=== PATIENT | female | born 1990 | race Caucasian/White ===

== ENCOUNTER 2019-07-05 10:05 | Inpatient (IN) | payer BC ==
[2019-07-05] MEDS ORDERED: Citric Acid/Sodium Citrate Solution 30 ML Cup PO ONE (10:17)
[2019-07-05] MEDS ORDERED: Sodium Chloride 0.9% 10 ML SDV IV PRN (10:17)
[2019-07-05] MEDS ORDERED: Sodium Chloride 0.9% 10 ML Syringe FLUSH PRN (10:17)
[2019-07-05] MEDS ORDERED: ceFAZolin 2 GM in Premix Bag 1 BAG IV ONE (10:17)
[2019-07-05] MEDS ORDERED: Sodium Chloride 0.9% 2.5 ML Syringe FLUSH PRN (10:17)
[2019-07-05] MEDS ORDERED: Oxytocin/0.9 % Sodium Chloride 30 UNIT/500 ML BAG IV SCH (10:30)
[2019-07-05] MEDS: Lactated Ringers 1,000 ML IV SCH ×3 (10:40→11:50)
[2019-07-05] MEDS ORDERED: Morphine PF 10 MG/10 ML SDV ONE (11:32)
--- NOTE | 2019-07-05 11:54 | PCM.PREANE ---
Preanesthetic Assessment - Anesthesia/Transfusion/Family Hx Anesthesia History: Prior Anesthesia Without Reaction Family History of Anesthesia Reaction: No Transfusion History: No Prior Transfusion(s) Intubation History: Unknown - Review of Systems General: No Symptoms Pulmonary: No Symptoms Cardiovascular: No Symptoms Gastrointestinal: No Symptoms Neurological: No Symptoms Other: Reports: None - Physical Assessment Height: 4 ft 11 in Weight: 61.689 kg ASA Class: 2 Mental Status: Alert & Oriented x3 Airway Class: Mallampati = 2 Dentition: Reports: Normal Dentition Thyro-Mental Finger Breadths: 3 Mouth Opening Finger Breadths: 3 ROM/Head Extension: Full Lungs: Clear to Auscultation, Normal Respiratory Effort Cardiovascular: Regular Rate, Regular Rhythm - Lab Values: Laboratory Last Values WBC 6.26 K/uL (4.0-11.0) 07/05/19 10:38 RBC 3.95 M/uL (4.30-5.90) L 07/05/19 10:38 Hgb 11.4 g/dL (12.0-16.0) L 07/05/19 10:38 Hct 34.8 % (36.0-46.0) L 07/05/19 10:38 MCV 88.1 fL (80.0-98.0) 07/05/19 10:38 MCH 28.9 pg (27.0-32.0) 07/05/19 10:38 MCHC 32.8 g/dL (31.0-37.0) 07/05/19 10:38 RDW Std Deviation 43.8 fl (28.0-62.0) 07/05/19 10:38 RDW Coeff of Nam 14 % (11.0-15.0) 07/05/19 10:38 Plt Count 137 K/uL (150-400) L 07/05/19 10:38 MPV 11.80 fL (7.40-12.00) 07/05/19 10:38 Nucleated RBC % 0.0 /100WBC 07/05/19 10:38 Nucleated RBCs # 0 K/uL 07/05/19 10:38 Blood Type A NEGATIVE 07/05/19 10:38 Antibody Screen NEGATIVE 07/05/19 10:38 - Allergies Allergies/Adverse Reactions: Allergies Allergy/AdvReac Type Severity Reaction Status Date / Time No Known Allergies Allergy Verified 06/29/19 10:14 - Blood Blood Available: No - Anesthesia Plan Pre-Op Medication Ordered: None - Acknowledgements Anesthesia Type Planned: Spinal (general anesthesia back-up plan) Pt an Appropriate Candidate for the Planned Anesthesia: Yes Alternatives and Risks of Anesthesia Discussed w Pt/Guardian: Yes Pt/Guardian Understands and Agrees with Anesthesia Plan: Yes PreAnesthesia Questionnaire HEENT History: Reports: None Cardiovascular History: Reports: None Respiratory History: Reports: None Gastrointestinal History: Reports: None Genitourinary History: Reports: None LOGISTICIAN History: Reports: Musculoskeletal History: Reports: None Neurological History: Reports: None Psychiatric History: Reports: None Endocrine/Metabolic History: Reports: None Hematologic History: Reports: Anemia Immunologic History: Reports: None Oncologic (Cancer) History: Reports: None Dermatologic History: Reports: None - Past Surgical History Head Surgeries/Procedures: Reports: None HEENT Surgical History: Reports: None Cardiovascular Surgical History: Reports: None Respiratory Surgical History: Reports: None GI Surgical History: Reports: None Female Surgical History: Reports: Section Endocrine Surgical History: Reports: None Neurological Surgical History: Reports: None Musculoskeletal Surgical History: Reports: None Oncologic Surgical History: Reports: None Dermatological Surgical History: Reports: None - SUBSTANCE USE Smoking Status *Q: Never Smoker Second Hand Smoke Exposure: No Recreational Drug Use History: No - HOME MEDS Home Medications: Home Meds Pnv No.95/Ferrous Fum/Folic AC [ Vitamin Tablet] 1 tab PO DAILY [History] - CURRENT (IN HOUSE) MEDS Current Meds: Current Medications Lactated Ringer's (Ringers, Lactated) 1,000 mls @ 500 mls/hr IV BOLUS [facility] Last Admin: 07/05/19 11:50 Dose: 500 mls/hr Oxytocin/Sodium Chloride (Oxytocin 30 Unit/500 Ml-Ns) 30 unit in 500 mls @ 250 mls/hr IV TITRATE [facility] Sodium Chloride (Saline Flush) 10 ml FLUSH ASDIRECTED PRN PRN Reason: Keep Vein Open Sodium Chloride (Saline Flush) 2.5 ml FLUSH ASDIRECTED PRN PRN Reason: Keep Vein Open Sodium Chloride (Normal Saline) 10 ml IV ASDIRECTED PRN PRN Reason: IV Use Discontinued Medications Citric Acid/Sodium Citrate (Bicitra Solution) 30 ml PO ONETIME ONE Stop: 07/05/19 10:18 Last Admin: 07/05/19 11:46 Dose: 30 ml Cefazolin Sodium/Dextrose 2 gm (/ Premix) 50 mls @ 100 mls/hr IV ONETIME ONE Stop: 07/05/19 10:46 Morphine Sulfate (Duramorph Pf) Confirm Administered Dose 10 mg .ROUTE .STK-MED ONE Stop: 07/05/19 11:33
[2019-07-05] MEDS ORDERED: ePHEDrine 50 MG/ML SDV ONE (13:01)
[2019-07-05] MEDS ORDERED: Phenylephrine/Normal Saline 100 MCG/ML 10 ML Syringe ONE (13:01)
[2019-07-05] MEDS ORDERED: Oxytocin 10 Units/1 ML SDV ONE (13:02)
[2019-07-05] MEDS ORDERED: Lanolin 100% Cream 7 GM Tube TOP PRN (13:06)
[2019-07-05] MEDS ORDERED: Ondansetron 4 MG/2 ML SDV IVPUSH PRN ×2 (13:06→13:18)
[2019-07-05] MEDS ORDERED: Bisacodyl 10 MG Supp RECTAL PRN (13:06)
[2019-07-05] MEDS ORDERED: diphenhydrAMINE 50 MG/ML SDV IVPUSH PRN ×2 (13:06→13:18)
--- NOTE | 2019-07-05 13:10 | PCM.OPNOTE ---
- General Post-Op/Procedure Note Date of Surgery/Procedure: 07/05/19 Operative Procedure(s): Repeat section Findings: Live male , cephalic presentation, Apgars 8/9, weight 3580g. Normal- appearing uterus and fallopian tubes with thin lower uterine segment. Pre Op Diagnosis: 29yo @ 39w2d. History of section x1 Post-Op Diagnosis: 29yo s/p repeat delivery Anesthesia Technique: Spinal Primary Surgeon: Miya Mir Pathology: Cord blood, cord gases, placenta Fluid Replacement, Intraop: 800 Output, Urine Amount: 150 EBL in mLs: 500 Complications: None Condition: Good
[2019-07-05] MEDS ORDERED: Lactated Ringers 1,000 ML IV SCH (13:15)
[2019-07-05] MEDS ORDERED: Acetaminophen/oxyCODONE 325-5 MG Tab PO PRN (13:18)
[2019-07-05] MEDS ORDERED: fentaNYL 100 MCG/2 ML SDV IVPUSH PRN (13:18)
[2019-07-05] MEDS ORDERED: Naloxone 0.4 MG/ML Syringe IVPUSH PRN (13:18)
[2019-07-05] MEDS ORDERED: Nalbuphine 10 MG/1 ML Vial IVPUSH PRN (13:18)
[2019-07-05] MEDS: Ketorolac 30 MG/ML SDV IVPUSH SCH ×2 (13:24→19:19)
--- NOTE | 2019-07-05 13:59 | PCM.POSTAN ---
POST ANESTHESIA ASSESSMENT - MENTAL STATUS Mental Status: Alert, Oriented - VITAL SIGNS Vital Signs: Last Vital Signs Temp 36 C 07/05/19 13:06 Pulse 91 07/05/19 13:41 Resp 20 07/05/19 13:41 BP 97/51 L 07/05/19 13:41 Pulse Ox 97 07/05/19 13:41 - RESPIRATORY Respiratory Status: Respiratory Rate WNL, Airway Patent, O2 Saturation Stable - CARDIOVASCULAR CV Status: Pulse Rate WNL, Blood Pressure Stable - GASTROINTESTINAL GI Status: No Symptoms - PAIN Pain Score: 0 - POST OP HYDRATION Hydration Status: Adequate & Stable - OBSERVATIONS Free Text/Narrative:: No anesthesia problems
--- NOTE | 2019-07-05 15:53 | OR ---
SURGEON: Miya Mir MD DATE OF PROCEDURE: 07/05/2019 PREOPERATIVE DIAGNOSES: 1. A 29-year-old, G2, P 1-0-0-1, at 39-2/7 weeks' gestation. 2. History of delivery x1. POSTOPERATIVE DIAGNOSES: 1. A 29-year-old, G2, P 1-0-0-1, at 39-2/7 weeks' gestation. 2. History of delivery x1. PROCEDURE: Repeat delivery. PRIMARY SURGEON: Miya Mir MD. ANESTHESIA: Spinal. IV FLUIDS: 800 mL. URINE OUTPUT: 150 mL. ESTIMATED BLOOD LOSS: 500 mL. FINDINGS: Live male in cephalic presentation. scores 8 and 9 at one and five minutes respectively. Weight 3580 g. Normal-appearing fallopian tubes and uterus within the lower uterine segment. INDICATIONS: This is a 29-year-old, G2, P 1-0-0-1 who presented at 39-2/7 weeks' gestation for planned repeat delivery. She had previously had a delivery for suspected cephalopelvic disproportion. The trial of labor calculator was used, which estimated 55% chance of success with a vaginal delivery. Therefore, the decision was made to proceed with repeat section. DESCRIPTION OF PROCEDURE: The patient was taken to the operating room where spinal anesthesia was obtained. She was placed in the dorsal supine position with a leftward tilt. She was prepared and draped in normal sterile fashion. Time-out was held. A Pfannenstiel skin incision was made using the previous incision as a guide with the scalpel and carried through to the underlying layer of fascia with the Bovie. The fascia was incised in the midline and the incision extended laterally with curved Awan scissors. The superior aspect of the fascial incision was grasped with Dusty clamps, elevated, and underlying rectus muscles dissected off bluntly with Bovie. In a similar fashion, the inferior aspect of the fascial incision was grasped with Dusty clamps, elevated, and underlying rectus muscles dissected off bluntly and with curved Awan scissors. The rectus muscles were in the midline. Peritoneum was entered bluntly. The peritoneal opening was extended using manual traction. The Sarwat retractor was inserted. A transverse lower uterine segment incision was made with a scalpel. Artificial rupture of membranes occurred with clear fluid noted. The 's head was delivered atraumatically followed by the remainder of the body. The nose and mouth were suctioned with bulb suction. Cord clamping was delayed for approximately 30 seconds. The was noted to be vigorous and crying. After 30 seconds, the cord was clamped and cut. The was handed off to the awaiting nurse. Cord gases and cord blood were obtained. Placenta was then delivered using uterine massage and gentle traction on the cord. The uterus was cleared of all clots and debris. The uterine incision was repaired with a running lock stitch of 0 Vicryl suture. A [id number] suture and the Bovie were used to obtain hemostasis of the hysterotomy. The gutters were cleared of all clots. The Sarwat retractor was removed. The hysterotomy was inspected and noted to be hemostatic. The fascia was closed with a running stitch of 0 Vicryl suture. The skin was closed with 4 - 0 Monocryl in a subcuticular fashion. The patient tolerated the procedure well. All sponge, lap, and needle counts were correct x3. 2 g of Ancef was given prior to incision. CHARISMA / CLIFF /[id number] LETITIA
[2019-07-05] MEDS: Docusate Sodium 100 MG Cap PO SCH (20:49)
[2019-07-06] MEDS: Ketorolac 30 MG/ML SDV IVPUSH SCH ×3 (01:30→13:33)
--- NOTE | 2019-07-06 07:52 | PCM.PNPP ---
- General Info Date of Service: 07/06/19 Subjective Update: Threw up last night after eating pizza, but tolerated peanut butter sandwich. Catheter just removed, has not attempted ambulation or voiding yet. Pain well controlled. Functional Status: Reports: Pain Controlled - Review of Systems General: Reports: No Symptoms HEENT: Reports: No Symptoms Pulmonary: Reports: No Symptoms Cardiovascular: Reports: No Symptoms Gastrointestinal: Reports: No Symptoms Genitourinary: Reports: No Symptoms Musculoskeletal: Reports: No Symptoms Skin: Reports: No Symptoms Neurological: Reports: No Symptoms Psychiatric: Reports: No Symptoms - Patient Data Vital Signs - Most Recent: Last Vital Signs Temp 36.6 C 07/06/19 04:00 Pulse 69 07/06/19 07:00 Resp 14 07/06/19 07:00 BP 89/55 L 07/06/19 04:00 Pulse Ox 94 L 07/06/19 07:00 Weight - Most Recent: 61.689 kg I&O - Last 24 Hours: Intake & Output 07/05/19 07/06/19 07/06/19 22:59 06:59 14:59 Intake Total 1450 320 Output Total 750 650 Balance 700 -330 Lab Results - Last 24 Hours: Laboratory Results - last 24 hr 07/05/19 07/05/19 07/05/19 Range/Units 10:38 10:38 10:38 WBC 6.26 (4.0-11.0) K/uL RBC 3.95 L (4.30-5.90) M/uL Hgb 11.4 L (12.0-16.0) g/dL Hct 34.8 L (36.0-46.0) % MCV 88.1 (80.0-98.0) fL MCH 28.9 (27.0-32.0) pg MCHC 32.8 (31.0-37.0) g/dL RDW Std Deviation 43.8 (28.0-62.0) fl RDW Coeff of Nam 14 (11.0-15.0) % Plt Count 137 L (150-400) K/uL MPV 11.80 (7.40-12.00) fL Nucleated RBC % 0.0 /100WBC Nucleated RBCs # 0 K/uL Cord ABG pH (7.18-7.38) Cord ABG Base Excess (-10--2) Cord VBG pH (7.25-7.45) Cord VBG Base Excess (-10--2) Blood Type A NEGATIVE Antibody Screen NEGATIVE Rhogam Indicated NO, MOM+BABY RH NEG 07/05/19 07/06/19 Range/Units 12:26 06:49 WBC (4.0-11.0) K/uL RBC (4.30-5.90) M/uL Hgb 10.4 L (12.0-16.0) g/dL Hct 32.2 L (36.0-46.0) % MCV (80.0-98.0) fL MCH (27.0-32.0) pg MCHC (31.0-37.0) g/dL RDW Std Deviation (28.0-62.0) fl RDW Coeff of Nam (11.0-15.0) % Plt Count (150-400) K/uL MPV (7.40-12.00) fL Nucleated RBC % /100WBC Nucleated RBCs # K/uL Cord ABG pH 7.228 (7.18-7.38) Cord ABG Base Excess -7 (-10--2) Cord VBG pH 7.261 (7.25-7.45) Cord VBG Base Excess -7 (-10--2) Blood Type Antibody Screen Rhogam Indicated Med Orders - Current: Current Medications Bisacodyl (Dulcolax) 10 mg RECTAL ONETIME PRN PRN Reason: Constipation Diphenhydramine HCl (Benadryl) 25 mg IVPUSH Q6H PRN PRN Reason: Itching or Nausea Last Admin: 07/05/19 13:23 Dose: 25 mg Diphenhydramine HCl (Benadryl) 25 mg IVPUSH Q4H PRN PRN Reason: Itching Stop: 07/06/19 13:19 Last Admin: 07/06/19 00:32 Dose: 25 mg Docusate Sodium (Colace) 100 mg PO BID [facility] Last Admin: 07/05/19 20:49 Dose: 100 mg Emollient Ointment (Lansinoh Hpa) 0 gm TOP ASDIRECTED PRN PRN Reason: Sore Nipples Fentanyl (Sublimaze) 50 mcg IVPUSH Q1H PRN PRN Reason: Pain (severe 7-10) Lactated Ringer's (Ringers, Lactated) 1,000 mls @ 500 mls/hr IV BOLUS [facility] Last Admin: 07/05/19 11:50 Dose: 500 mls/hr Oxytocin/Sodium Chloride (Oxytocin 30 Unit/500 Ml-Ns) 30 unit in 500 mls @ 250 mls/hr IV TITRATE [facility] Lactated Ringer's (Ringers, Lactated) 1,000 mls @ 125 mls/hr IV ASDIRECTED [facility] Last Admin: 07/05/19 14:26 Dose: 125 mls/hr Ibuprofen (Motrin) 800 mg PO Q8H PRN PRN Reason: mild pain or fever Ketorolac Tromethamine (Toradol) 30 mg IVPUSH Q6H [facility] Stop: 07/06/19 13:16 Last Admin: 07/06/19 07:25 Dose: 30 mg Nalbuphine HCl (Nubain) 5 mg IVPUSH ASDIRECTED PRN PRN Reason: Itching Last Admin: 07/05/19 18:52 Dose: 5 mg Naloxone HCl (Narcan) 0.1 mg IVPUSH ONETIME PRN PRN Reason: Respiratory Depression Stop: 07/06/19 13:19 Ondansetron HCl (Zofran) 4 mg IVPUSH Q4H PRN PRN Reason: Nausea/Vomiting Last Admin: 07/05/19 21:26 Dose: 4 mg Ondansetron HCl (Zofran) 4 mg IVPUSH Q6H PRN PRN Reason: Nausea Oxycodone/Acetaminophen (Percocet 325-5 Mg) 1 tab PO Q4H PRN PRN Reason: Pain (moderate 4-6) Oxycodone/Acetaminophen (Percocet 325-5 Mg) 2 tab PO Q4H PRN PRN Reason: Pain (moderate 4-6) Oxycodone/Acetaminophen (Percocet 325-5 Mg) 2 tab PO Q6H PRN PRN Reason: Pain (moderate 4-6) Sodium Chloride (Saline Flush) 10 ml FLUSH ASDIRECTED PRN PRN Reason: Keep Vein Open Sodium Chloride (Saline Flush) 2.5 ml FLUSH ASDIRECTED PRN PRN Reason: Keep Vein Open Sodium Chloride (Normal Saline) 10 ml IV ASDIRECTED PRN PRN Reason: IV Use Discontinued Medications Citric Acid/Sodium Citrate (Bicitra Solution) 30 ml PO ONETIME ONE Stop: 07/05/19 10:18 Last Admin: 07/05/19 11:46 Dose: 30 ml Ephedrine Sulfate (Ephedrine Sulfate) Confirm Administered Dose 50 mg .ROUTE .STK-MED ONE Stop: 07/05/19 13:02 Cefazolin Sodium/Dextrose 2 gm (/ Premix) 50 mls @ 100 mls/hr IV ONETIME ONE Stop: 07/05/19 10:46 Morphine Sulfate (Duramorph Pf) Confirm Administered Dose 10 mg .ROUTE .STK-MED ONE Stop: 07/05/19 11:33 Oxytocin (Pitocin) Confirm Administered Dose 20 unit .ROUTE .STK-MED ONE Stop: 07/05/19 13:03 Phenylephrine HCl (Phenylephrine In Ns 100 Mcg/Ml) Confirm Administered Dose 1 mg .ROUTE .STK-MED ONE Stop: 07/05/19 13:02 - Infant Interaction Infant Disposition, : at Bedside Infant Interaction: Not Interacting Feeding: Attempted ; Nursed Fair/Poor Support Person: - Recovery Exam Fundal Tone: Firm Fundal Level: 1 Fingerbreadths Below Umbilicus Fundal Placement: Midline Lochia Amount: Scant Lochia Color: Rubra/Red Episiotomy/Laceration: None Bladder Status: Palpable - Exam General: Alert, Oriented Neck: Supple Lungs: Clear to Auscultation, Normal Respiratory Effort Cardiovascular: Regular Rate, Regular Rhythm GI/Abdominal Exam: Soft, Non-Tender, No Distention Extremities: Normal Inspection, No Pedal Edema Skin: Warm, Dry, Intact Wound/Incisions: Dressing Dry and Intact Neurological: No New Focal Deficit Psy/Mental Status: Alert, Normal Affect, Normal Mood - Problem List & Annotations (1) delivery delivered SNOMED Code(s): 240029766 Code(s): O82 - ENCOUNTER FOR DELIVERY WITHOUT INDICATION Status: Acute Current Visit: Yes - Problem List Review Problem List Initiated/Reviewed/Updated: Yes - My Orders Last 24 Hours: My Active Orders 07/05/19 10:17 Patient Status [ADT] Routine Up ad Nuvia [RC] ASDIRECTED Sodium Chloride 0.9% [Normal Saline] 10 ml IV ASDIRECTED PRN Sodium Chloride 0.9% [Saline Flush] 10 ml FLUSH ASDIRECTED PRN Sodium Chloride 0.9% [Saline Flush] 2.5 ml FLUSH ASDIRECTED PRN Peripheral IV Insertion Adult [OM.PC] Routine Schedule Procedure [COMM] Per Unit Routine Resuscitation Status Routine 07/05/19 10:30 Lactated Ringers [Ringers, Lactated] 1,000 ml IV BOLUS Oxytocin/0.9 % Sodium Chloride [Oxytocin 30 Unit/500 ML-NS] 30 unit in 500 ml IV TITRATE 07/05/19 10:38 RAPID PLASMA REAGIN, QUANT [REF] Routine 07/05/19 13:06 Patient Status [ADT] Routine Ambulate [RC] PER UNIT ROUTINE Antiembolic Devices [RC] PER UNIT ROUTINE Communication Order [RC] PER UNIT ROUTINE Communication Order [RC] PER UNIT ROUTINE Communication Order [RC] Per Unit Routine Intake and Output [RC] Q8H May Shower [RC] ASDIRECTED Notify Provider Intake and Out [RC] ASDIRECTED Notify Provider Vital Signs [RC] ASDIRECTED RT Incentive Spirometry [RC] Q2HWA Urinary Catheter Removal [RC] Per Unit Routine Vital Signs [RC] PER UNIT ROUTINE Acetaminophen/oxyCODONE [Percocet 325-5 MG] 1 tab PO Q4H PRN Acetaminophen/oxyCODONE [Percocet 325-5 MG] 2 tab PO Q4H PRN Bisacodyl [Dulcolax] 10 mg RECTAL ONETIME PRN Ibuprofen [Motrin] 800 mg PO Q8H PRN Lanolin [Lansinoh HPA] See Dose Instructions TOP ASDIRECTED PRN Ondansetron [Zofran] 4 mg IVPUSH Q4H PRN diphenhydrAMINE [Benadryl] 25 mg IVPUSH Q6H PRN Abdominal Binder [OM.PC] Routine Assess Lochia [WOMSER] Per Unit Routine Assess Uterine Involution [WOMSER] Per Unit Routine Breast Pump [WOMSER] Per Unit Routine DVT/VTE Prophylaxis Reflex [OM.PC] Routine Peripheral IV Discontinue [OM.PC] Routine Sequential Compression Device [OM.PC] Per Unit Routine 07/05/19 13:08 VTE/DVT Education [RC] PER UNIT ROUTINE Sequential Compression Device [OM.PC] Per Unit Routine 07/05/19 13:15 Ketorolac [Toradol] 30 mg IVPUSH Q6H Lactated Ringers [Ringers, Lactated] 1,000 ml IV ASDIRECTED 07/05/19 21:00 Docusate Sodium [Colace] 100 mg PO BID 07/05/19 Dinner Regular Diet [DIET] - Assessment Assessment:: 29yo s/p repeat section at 39w2d, POD#1 - Plan Plan:: Patient doing well. Straight cath if unable to void after 6 hours today. Encourage ambulation. Plan to be discharged home on POD#2.
--- NOTE | 2019-07-06 09:15 | PCM48HPAN ---
Post Anesthesia Note - EVALUATION WITHIN 48HRS OF ANESTHETIC Vital Signs in Normal Range: Yes Patient Participated in Evaluation: Yes Respiratory Function Stable: Yes Airway Patent: Yes Cardiovascular Function Stable: Yes Hydration Status Stable: Yes Pain Control Satisfactory: Yes Nausea and Vomiting Control Satisfactory: Yes Mental Status Recovered: Yes Vital Signs: Last Vital Signs Temp 36.9 C 07/06/19 07:35 Pulse 82 07/06/19 07:35 Resp 16 07/06/19 07:35 BP 97/52 L 07/06/19 07:35 Pulse Ox 96 07/06/19 07:35 - COMMENTS/OBSERVATIONS Free Text/Narrative:: Denies any problems at this time
[2019-07-06] MEDS: Docusate Sodium 100 MG Cap PO SCH ×2 (10:33→20:21)
[2019-07-06] MEDS: Acetaminophen/oxyCODONE 325-5 MG Tab PO PRN ×2 (17:37→20:22)
[2019-07-06] MEDS: Ibuprofen 800 MG Tab PO PRN (23:55)
[2019-07-07] MEDS: Acetaminophen/oxyCODONE 325-5 MG Tab PO PRN ×3 (03:44→13:51)
[2019-07-07] MEDS: Ibuprofen 800 MG Tab PO PRN (08:15)
--- NOTE | 2019-07-07 08:44 | PCM.PNPP ---
- General Info Date of Service: 07/07/19 Subjective Update: Patient without complaints. Passing flatus, no bowel movement yet. going well. Functional Status: Reports: Pain Controlled, Tolerating Diet, Ambulating, Urinating - Review of Systems General: Reports: No Symptoms HEENT: Reports: No Symptoms Pulmonary: Reports: No Symptoms Cardiovascular: Reports: No Symptoms Gastrointestinal: Reports: No Symptoms Genitourinary: Reports: No Symptoms Musculoskeletal: Reports: No Symptoms Skin: Reports: No Symptoms Neurological: Reports: No Symptoms Psychiatric: Reports: No Symptoms - Patient Data Vital Signs - Most Recent: Last Vital Signs Temp 35.9 C 07/07/19 08:01 Pulse 76 07/07/19 08:01 Resp 16 07/07/19 08:01 BP 96/67 07/07/19 08:01 Pulse Ox 96 07/07/19 08:01 Weight - Most Recent: 61.689 kg Lab Results - Last 24 Hours: Laboratory Results - last 24 hr 07/05/19 Range/Units 10:38 RPR Non Reactive (NonRea<1:1) Med Orders - Current: Current Medications Bisacodyl (Dulcolax) 10 mg RECTAL ONETIME PRN PRN Reason: Constipation Diphenhydramine HCl (Benadryl) 25 mg IVPUSH Q6H PRN PRN Reason: Itching or Nausea Last Admin: 07/05/19 13:23 Dose: 25 mg Docusate Sodium (Colace) 100 mg PO BID [facility] Last Admin: 07/06/19 20:21 Dose: 100 mg Emollient Ointment (Lansinoh Hpa) 0 gm TOP ASDIRECTED PRN PRN Reason: Sore Nipples Fentanyl (Sublimaze) 50 mcg IVPUSH Q1H PRN PRN Reason: Pain (severe 7-10) Lactated Ringer's (Ringers, Lactated) 1,000 mls @ 500 mls/hr IV [facility]OLUS [facility] Last Admin: 07/05/19 11:50 Dose: 500 mls/hr Oxytocin/Sodium Chloride (Oxytocin 30 Unit/500 Ml-Ns) 30 unit in 500 mls @ 250 mls/hr IV TITRATE [facility] Lactated Ringer's (Ringers, Lactated) 1,000 mls @ 125 mls/hr IV ASDIRECTED [facility] Last Admin: 07/05/19 14:26 Dose: 125 mls/hr Ibuprofen (Motrin) 800 mg PO Q8H PRN PRN Reason: mild pain or fever Last Admin: 07/07/19 08:15 Dose: 800 mg Nalbuphine HCl (Nubain) 5 mg IVPUSH ASDIRECTED PRN PRN Reason: Itching Last Admin: 07/05/19 18:52 Dose: 5 mg Ondansetron HCl (Zofran) 4 mg IVPUSH Q4H PRN PRN Reason: Nausea/Vomiting Last Admin: 07/05/19 21:26 Dose: 4 mg Ondansetron HCl (Zofran) 4 mg IVPUSH Q6H PRN PRN Reason: Nausea Oxycodone/Acetaminophen (Percocet 325-5 Mg) 1 tab PO Q4H PRN PRN Reason: Pain (moderate 4-6) Last Admin: 07/06/19 20:22 Dose: 1 tab Oxycodone/Acetaminophen (Percocet 325-5 Mg) 2 tab PO Q4H PRN PRN Reason: Pain (moderate 4-6) Last Admin: 07/07/19 08:14 Dose: 2 tab Oxycodone/Acetaminophen (Percocet 325-5 Mg) 2 tab PO Q6H PRN PRN Reason: Pain (moderate 4-6) Sodium Chloride (Saline Flush) 10 ml FLUSH ASDIRECTED PRN PRN Reason: Keep Vein Open Sodium Chloride (Saline Flush) 2.5 ml FLUSH ASDIRECTED PRN PRN Reason: Keep Vein Open Sodium Chloride (Normal Saline) 10 ml IV ASDIRECTED PRN PRN Reason: IV Use Discontinued Medications Citric Acid/Sodium Citrate (Bicitra Solution) 30 ml PO ONETIME ONE Stop: 07/05/19 10:18 Last Admin: 07/05/19 11:46 Dose: 30 ml Diphenhydramine HCl (Benadryl) 25 mg IVPUSH Q4H PRN PRN Reason: Itching Stop: 07/06/19 13:19 Last Admin: 07/06/19 00:32 Dose: 25 mg Ephedrine Sulfate (Ephedrine Sulfate) Confirm Administered Dose 50 mg .ROUTE .STK-MED ONE Stop: 07/05/19 13:02 Cefazolin Sodium/Dextrose 2 gm (/ Premix) 50 mls @ 100 mls/hr IV ONETIME ONE Stop: 07/05/19 10:46 Last Admin: 07/06/19 22:27 Dose: Not Given Ketorolac Tromethamine (Toradol) 30 mg IVPUSH Q6H [facility] Stop: 07/06/19 13:16 Last Admin: 07/06/19 13:33 Dose: 30 mg Morphine Sulfate (Duramorph Pf) Confirm Administered Dose 10 mg .ROUTE .STK-MED ONE Stop: 07/05/19 11:33 Naloxone HCl (Narcan) 0.1 mg IVPUSH ONETIME PRN PRN Reason: Respiratory Depression Stop: 07/06/19 13:19 Oxytocin (Pitocin) Confirm Administered Dose 20 unit .ROUTE .STK-MED ONE Stop: 07/05/19 13:03 Phenylephrine HCl (Phenylephrine In Ns 100 Mcg/Ml) Confirm Administered Dose 1 mg .ROUTE .STK-MED ONE Stop: 07/05/19 13:02 - Interaction Disposition, : [place] to Nursery Infant Interaction: Not Interacting Infant Feeding: Attempted ; Nursed Fair/Poor Support Person: - Recovery Exam Fundal Tone: Firm Fundal Level: 1 Fingerbreadths Below Umbilicus Fundal Placement: Midline Lochia Amount: Scant Lochia Color: Rubra/Red Episiotomy/Laceration: None Bladder Status: Voiding Urinary Elimination: Voided - Exam General: Alert, Oriented Neck: Supple Lungs: Clear to Auscultation, Normal Respiratory Effort Cardiovascular: Regular Rate, Regular Rhythm GI/Abdominal Exam: Soft, Non-Tender, No Distention Extremities: Normal Inspection, No Pedal Edema Skin: Warm, Dry, Intact Wound/Incisions: Healing Well Neurological: No New Focal Deficit Psy/Mental Status: Alert, Normal Affect, Normal Mood - Problem List & Annotations (1) delivery delivered SNOMED Code(s): 864690869 Code(s): O82 - ENCOUNTER FOR DELIVERY WITHOUT INDICATION Status: Acute Current Visit: Yes - Problem List Review Problem List Initiated/Reviewed/Updated: Yes - My Orders Last 24 Hours: My Active Orders 07/07/19 08:42 Ready for Discharge [RC] PER UNIT ROUTINE - Assessment Assessment:: 29yo s/p repeat section at 39w2d, POD#2 - Plan Plan:: Patient doing well. Reviewed discharge instructions, desires discharge home today.
== END 2019-07-07 14:47 | disposition home or self-care (01) | DRG 540 ==
LOC: MW.OB 10:05
PROVIDERS: ADMIT Obstetrics & Gynecology; ATTEND Obstetrics & Gynecology
PROC: 10D00Z1 Extraction of Products of Conception, Low, Open Approach (ICD-10-PCS; principal; 2019-07-05)
DX: O34.211 Maternal care for low transverse scar from previous cesarean delivery (principal); Z37.0 Single live birth; Z3A.39 39 weeks gestation of pregnancy
CPT/HCPCS: 36415; 59025; 82803; 85014; 85018; 85027; 86593; 86850; 86900; 86901; A9270-GY; J1200; J1885; J2270; J2300; J2370; J2405; J2590; J7120

== ENCOUNTER 2022-06-06 08:00 | Inpatient (IN) | payer BC ==
[2022-06-13] MEDS ORDERED: Sodium Chloride 0.9% 10 ML Syringe FLUSH PRN (10:16)
[2022-06-13] MEDS ORDERED: Citric Acid/Sodium Citrate Solution 30 ML Cup PO ONE (10:16)
[2022-06-13] MEDS ORDERED: Sodium Chloride 0.9% 2.5 ML Syringe FLUSH PRN (10:16)
[2022-06-13] MEDS ORDERED: Sodium Chloride 0.9% 20 ML SDV IV PRN (10:16)
[2022-06-13] MEDS ORDERED: ceFAZolin 2 GM in Premix Bag 1 BAG IV ONE (10:20)
[2022-06-13] MEDS ORDERED: Oxytocin/0.9 % Sodium Chloride 30 UNIT/500 ML BAG IV SCH ×2 (10:30→16:00)
[2022-06-13] MEDS ORDERED: Lactated Ringers 1,000 ML IV SCH ×3 (10:30→16:00)
[2022-06-13] MEDS ORDERED: Bupivacaine 0.25%/EPINEPHrine 1:200,000 10 ML SDV ONE (11:07)
[2022-06-13] MEDS ORDERED: fentaNYL 100 MCG/2 ML SDV ONE (11:12)
[2022-06-13] MEDS ORDERED: Morphine PF 10 MG/10 ML SDV ONE (11:12)
[2022-06-13] MEDS ORDERED: ceFAZolin 1 GM Vial ONE (11:27)
[2022-06-13] MEDS ORDERED: Phenylephrine HCl In 0.9% NaCl 1 MG/10 ML Vial ONE (11:38)
[2022-06-13] MEDS ORDERED: ePHEDrine 50 MG/ML SDV ONE (11:57)
[2022-06-13] MEDS ORDERED: Phenylephrine 1% 10 MG/ML SDV ONE ×2 (12:06)
[2022-06-13] MEDS ORDERED: Ondansetron 4 MG/2 ML SDV ONE (13:06)
[2022-06-13] MEDS ORDERED: HYDROmorphone 1 MG/ML Syringe IVPUSH PRN (14:34)
[2022-06-13] MEDS ORDERED: Naloxone 0.4 MG/ML SDV IVPUSH PRN (14:34)
[2022-06-13] MEDS ORDERED: fentaNYL 100 MCG/2 ML SDV IVPUSH PRN (14:34)
[2022-06-13] MEDS ORDERED: fentaNYL 50 MCG/ML SDV IVPUSH PRN (14:34)
[2022-06-13] MEDS ORDERED: Acetaminophen/oxyCODONE 325-5 MG Tab PO PRN ×2 (14:34→15:47)
[2022-06-13] MEDS ORDERED: diphenhydrAMINE 50 MG/ML SDV IVPUSH PRN ×2 (14:34→15:47)
[2022-06-13] MEDS ORDERED: Morphine 2 MG/ML SYRINGE IVPUSH PRN (14:34)
[2022-06-13] MEDS ORDERED: ePHEDrine 50 MG/ML SDV IVPUSH PRN (14:34)
[2022-06-13] MEDS ORDERED: Metoclopramide 10 MG/2 ML SDV IVPUSH PRN (14:34)
[2022-06-13] MEDS ORDERED: Ondansetron 4 MG/2 ML SDV IVPUSH PRN ×3 (14:34→15:47)
[2022-06-13] MEDS ORDERED: Albuterol 0.083% 2.5 MG/3 ML Neb Soln NEB PRN (14:34)
[2022-06-13 15:47] LABS: CARBON DIOXIDE,CO2 19.2 mmol/L (21.0-32.0)
[2022-06-13] MEDS ORDERED: Methylergonovine 0.2 MG/1 ML Amp IM PRN (15:47)
[2022-06-13] MEDS ORDERED: Oxytocin 10 Units/1 ML SDV IM PRN (15:47)
[2022-06-13] MEDS ORDERED: Lanolin 100% Cream 7 GM Tube TOP PRN (15:47)
[2022-06-13] MEDS ORDERED: Tranexamic Acid 1,000 MG in Sodium Chloride 0.9% 100 ML IV PRN (15:47)
[2022-06-13] MEDS ORDERED: Misoprostol 200 MCG Tab RECTAL PRN (15:47)
[2022-06-13] MEDS ORDERED: Bisacodyl 10 MG Supp RECTAL PRN (15:47)
[2022-06-13] MEDS: Piperacillin/Tazobactam 4.5 GM in Sodium Chloride 0.9% 100 ML IV SCH ×2 (16:53→23:11)
[2022-06-13] MEDS: Ketorolac 30 MG/ML SDV IVPUSH SCH ×2 (17:20→22:24)
[2022-06-13] MEDS: Phenylephrine HCl In 0.9% NaCl 1 MG/10 ML Vial IVPUSH SCH (21:01)
[2022-06-13] MEDS: Docusate Sodium 100 MG Cap PO SCH (21:14)
[2022-06-14] MEDS: Lactated Ringers 1,000 ML IV SCH ×2 (00:40→08:52)
[2022-06-14] MEDS: Ketorolac 30 MG/ML SDV IVPUSH SCH ×3 (04:36→15:48)
[2022-06-14] MEDS: Piperacillin/Tazobactam 4.5 GM in Sodium Chloride 0.9% 100 ML IV SCH ×4 (04:38→22:45)
[2022-06-14 06:37] LABS: CARBON DIOXIDE,CO2 18.4 mmol/L (21.0-32.0); POTASSIUM,K 4.3 mmol/L (3.5-5.1)
[2022-06-14] MEDS: Docusate Sodium 100 MG Cap PO SCH ×2 (08:45→20:52)
[2022-06-14] MEDS ORDERED: Magnesium Sulfate/Water 4 GM in Premix Bag 1 BAG IV ONE (09:15)
[2022-06-14] MEDS: Acetaminophen/oxyCODONE 325-5 MG Tab PO PRN ×2 (19:03→23:08)
[2022-06-15] MEDS: Lactated Ringers 1,000 ML IV SCH (00:57)
[2022-06-15] MEDS: Acetaminophen/oxyCODONE 325-5 MG Tab PO PRN ×5 (04:29→23:59)
[2022-06-15] MEDS: Piperacillin/Tazobactam 4.5 GM in Sodium Chloride 0.9% 100 ML IV SCH ×2 (05:03→10:51)
[2022-06-15] MEDS: Docusate Sodium 100 MG Cap PO SCH ×2 (09:08→20:49)
[2022-06-16] MEDS: Acetaminophen/oxyCODONE 325-5 MG Tab PO PRN ×3 (03:12→21:24)
[2022-06-16] MEDS: Docusate Sodium 100 MG Cap PO SCH ×2 (09:11→21:01)
[2022-06-16] MEDS ORDERED: Bisacodyl 10 MG Supp RECTAL ONE (09:23)
[2022-06-16] MEDS: Ibuprofen 800 MG Tab PO PRN ×2 (10:18→18:23)
[2022-06-17] MEDS: Ibuprofen 800 MG Tab PO PRN (03:17)
[2022-06-17] MEDS: Docusate Sodium 100 MG Cap PO SCH (08:00)
== END 2022-06-17 10:12 | disposition home or self-care (01) | DRG 540 ==
LOC: MW.OB 06-13 09:50 → MW.ICU 06-13 15:35 → MW.OB 06-14 16:53
PROVIDERS: ADMIT Obstetrics & Gynecology; ATTEND Obstetrics & Gynecology
PROC: 10D00Z1 Extraction of Products of Conception, Low, Open Approach (ICD-10-PCS; principal; 2022-06-13)
PROC: 0TQB0ZZ Repair Bladder, Open Approach (ICD-10-PCS; 2022-06-13)
PROC: 3E033XZ Introduction of Vasopressor into Peripheral Vein, Percutaneous Approach (ICD-10-PCS; 2022-06-13)
PROC: 30233N1 Transfusion of Nonautologous Red Blood Cells into Peripheral Vein, Percutaneous Approach (ICD-10-PCS; 2022-06-14)
DX: O44.13 Complete placenta previa with hemorrhage, third trimester (principal); O34.211 Maternal care for low transverse scar from previous cesarean delivery; O43.213 Placenta accreta, third trimester; Z3A.40 40 weeks gestation of pregnancy; Z37.0 Single live birth; O48.0 Post-term pregnancy; O99.02 Anemia complicating childbirth; D62 Acute posthemorrhagic anemia; S37.23XA Laceration of bladder, initial encounter; I95.9 Hypotension, unspecified
CPT/HCPCS: 01961; 36415; 36430; 59025; 64488; 80053; 83735; 84100; 85025; 85027; 85384; 85610; 85730; 86592; 86850; 86900; 86901; 86920; 86921; 86922; A9270-GY; J0690; J1885; J2274; J2370; J2405; J2543; J3010; J3475; J3490; J7120; P9016

== ENCOUNTER 2022-06-19 19:41 | Emergency (ER) | payer BC ==
[2022-06-19] MEDS ORDERED: Acetaminophen/HYDROcodone 325-10 MG Tab PO ONE (20:54)
[2022-06-19] MEDS ORDERED: Ketorolac 30 MG/ML SDV IM ONE (20:56)
== END 2022-06-19 21:25 | disposition home or self-care (01) ==
LOC: MW.ED 19:41
DX: O9A.23 Injury, poisoning and certain other consequences of external causes complicating the puerperium (principal); T83.031A Leakage of indwelling urethral catheter, initial encounter; Z98.890 Other specified postprocedural states
CPT/HCPCS: 51702; 81001; 87086; 96372; 99283; A9270; J1885